=== PATIENT | female | born 1980 | race Caucasian/White ===

== ENCOUNTER 2019-03-21 09:47 | Emergency (ER) | payer OTHER ==
[2019-03-21 10:02] VITALS: BMI 35.5
[2019-03-21] MEDS ORDERED: ACETAMINOPHEN 325 MG TABLET (FP) PO ONE (10:59)
[2019-03-21] MEDS ORDERED: valACYclovir HCL 1000 MG TABLET PO ONE (11:00)
[2019-03-21] MEDS ORDERED: predniSONE 20 MG TABLET (UD) PO ONE ×2 (11:01→11:02)
--- NOTE | 2019-03-21 11:01 | PDOC ---
History of Present Illness - General Chief Complaint: Head/Neck problem Stated Complaint: LT. FACE NUMBING Time Seen by Provider: 03/21/19 10:01 - History of Present Illness Initial Comments: 03/21/19 10:55 38 F with h/o HLD presents to ED with L ear pain and L facial drooping. Pt states that she first noticed her symptoms last night when she developed pain in her L ear. This morning, the pain persisted, and pt also noticed that the L side of her face was drooping. Pt denies any numbness to the face. Denies any weakness or numbness in any extremity. Denies dizziness. Denies neck pain. Denies F/C. Denies rash anywhere. Past History - Past Medical History Allergies/Adverse Reactions: Allergies Allergy/AdvReac Type Severity Reaction Status Date / Time No Known Allergies Allergy Verified 03/21/19 10:02 Home Medications: Ambulatory Orders Ibuprofen [Motrin -] 600 mg PO TID PRN #60 tablet 01/03/14 Asthma: No Cancer: No Cardiac Disorders: No COPD: No Diabetes: Yes (gdm) HTN: No Seizures: No Thyroid Disease: No - Suicide/Smoking/Psychosocial Hx Smoking History: Never smoked Have you smoked in the past 12 months: No Information on smoking cessation initiated: No Hx Alcohol Use: No Drug/Substance Use Hx: No Hx Substance Use Treatment: No Review of Systems - Review of Systems Comments:: 03/21/19 11:04 GENERAL/CONSTITUTIONAL: No fever or chills. No weakness. HEAD, EYES, EARS, NOSE AND THROAT: + L ear pain, No change in vision. No sore throat. CARDIOVASCULAR: No chest pain, no shortness of breath, no loss of consciousness RESPIRATORY: No cough, wheezing, or hemoptysis. GASTROINTESTINAL: No nausea, vomiting, diarrhea or constipation. GENITOURINARY: No dysuria, frequency, or change in urination. MUSCULOSKELETAL: No joint or muscle swelling or pain. No neck or back pain. SKIN: No rash NEUROLOGIC: + L facial droop, No vertigo, no change in strength/sensation in any extremity. ENDOCRINE: No increased thirst. No abnormal weight change. HEMATOLOGIC/LYMPHATIC: No anemia, easy bleeding, or history of blood clots. ALLERGIC/IMMUNOLOGIC: No hives or skin allergy. *Physical Exam - Vital Signs Last Vital Signs Temp Pulse Resp BP Pulse Ox 97.7 F 60 18 122/81 98 03/21/19 10:00 03/21/19 10:00 03/21/19 10:00 03/21/19 10:00 03/21/19 10:06 - Physical Exam Comments: 03/21/19 11:05 "GENERAL: Awake, alert, and fully oriented, in no acute distress. HEAD: No signs of trauma EYES: PERRLA, EOMI, sclera anicteric, conjunctiva clear ENT: + L TM and external auditory canal with multiple vesicles, Auricles normal inspection, hearing grossly normal, nares patent, oropharynx clear without exudates. Moist mucosa NECK: Nontender, no stepoffs, Normal ROM, supple, no lymphadenopathy, JVD, or masses LUNGS: Breath sounds equal, clear to auscultation bilaterally. No wheezes, and no crackles HEART: Regular rate and rhythm, normal S1 and S2, no murmurs, rubs or gallops ABDOMEN: Soft, nontender, normoactive bowel sounds. No guarding, no rebound. No masses EXTREMITIES: Normal range of motion, no edema. No clubbing or cyanosis. No cords, erythema, or tenderness NEUROLOGICAL: + L facial droop with involvement of forehead. 5/5 strength and sensation in all extremities, Normal speech, normal gait, normal cerebellar function SKIN: Warm, Dry, normal turgor, no rashes or lesions noted. Medical Decision Making - Medical Decision Making 03/21/19 11:06 38 F with L facial droop and L ear pain. 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 Pt also found to have vesicular lesions on L TM and auditory canal, suspicious for Camden Winston Syndrome. Pt with no other symptoms or risk factors to suggest CVA or other central process. - Valacyclovir, Prednisone - Neuro f/u Pt is well appearing, with normal vitals. Clinically stable for DC at this time. I discussed the physical exam findings, ancillary test results and final diagnoses with the patient. I answered all of the patient's questions. The patient was satisfied with the care received and felt comfortable with the discharge plan and treatment plan. The patient agrees to follow up with the primary care physician within 24-72 hours. 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 This is typically caused by a viral infection. Take the medications as prescribed to treat it. If you experience worsening numbness, pain, fevers, numbness or weakness in your arms or legs, or any other worrisome symptoms, return to the ER immediately. Otherwise, follow up with a neurologist within 1 week. Call the number provided to make an appointment. Tienes el sndrome de Courtney Winston. [place] generalmente es causado por robinson infeccin viral. [place] los medicamentos segn lo prescrito para tratarlo. Si experimenta entumecimiento, dolor, fiebre, entumecimiento o debilidad en los brazos o las piernas, o cualquier otro sntoma preocupante, regrese a la krysten de emergencias de inmediato. De lo contrario, ely un seguimiento con un neurlogo dentro de 1 semana. Llame al nmero provisto para hacer robinson shani. Print Language: TELUGU - Post Discharge Activity - Attestations Physician Attestion: 03/21/19 11:11 I, Dr. Negro Leggett MD, attest that this document has been prepared under my direction and personally reviewed by me in its entirety. I further attest, that it accurately reflects all work, treatment, procedures and medical decision -making performed by me.
[2019-03-21] MEDS ORDERED: ACETAMINOPHEN 325 MG TABLET (FP) ONE (11:03)
[2019-03-21] MEDS ORDERED: valACYclovir HCL 500 MG TABLET (FP) ONE (11:03)
[2019-03-21] MEDS ORDERED: predniSONE 20 MG TABLET (UD) ONE (11:03)
[2019-03-21 11:30] VITALS: BP 108/83; PULSE 81; TEMP 98
== END 2019-03-21 11:30 | disposition home or self-care (01) ==
LOC: JER 09:47
DX: B02.21 Postherpetic geniculate ganglionitis (principal); B97.89 Other viral agents as the cause of diseases classified elsewhere; G51.0 Bell's palsy
CPT/HCPCS: 99283-25